=== PATIENT | female | born 1970 | race Caucasian/White ===

== ENCOUNTER 2016-05-20 00:37 | Inpatient (IN) | payer MEDICARE ==
--- NOTE | ~2016-05-20 | HP ---
Unit #: [id number] #: [id number] Patient: TREV BOJORQUEZ X [place] HISTORY AND PHYSICAL
--- NOTE | ~2016-05-20 | PN ---
Unit #: [id number] #: [id number] Patient: TREV BOJORQUEZ [id number] [facility] [address] [place] [address] [id number] I MR#: [id number] NAME: TREV BOJORQUEZ. ROOM: P125 Age: 45 Sex: F Admission Date: 05/20/2016 : 1970 Attending Physician: Raul Donovan M.D. Admitting Physician: Raul Donovan M.D. Primary Care Physician: Primary Care Physician Alisa RECINOS PROGRESS NOTES DATE 05/27/2016 DISCUSSION Trev continues to demonstrate some thought-blocking and paranoia today. She is compliant with medications and denies any adverse side effects. She is alert and oriented to person and location with partial orientation to time and situation. Memory and concentration appear fair. Her thought processes continue to appear stilted with thought blocking. ASSESSMENT Bipolar mixed with psychotic features. PLAN Continue with current treatment plan. Dictated by... Ghanshyam BarneyH/kathe TD: 05/29/2016 12:53 JOB #: [id number] [facility] PROGRESS NOTES Page 1 of 1 X Raul Donovan MD X PROGRESS NOTE
--- NOTE | ~2016-05-20 | PN ---
Unit #: [id number] #: [id number] Patient: TREV BOJORQUEZ [id number] [facility] [address] [place] [address] [id number] MR#: [id number] NAME: TREV BOJORQUEZ. ROOM: P125 Age: 45 Sex: F Admission Date: 05/20/2016 : 1970 Attending Physician: Raul Donovan M.D. Admitting Physician: Raul Donovan M.D. Primary Care Physician: Primary Care Physician Alisa RECINOS PROGRESS NOTES DATE 05/28/2016 DISCUSSION Trev shows improvement today. Her speech is more spontaneous with much thought-blocking, and her affect is brighter with better eye contact and a broader range of expression. She is alert and oriented to person, location, time, and partially to situation. Her memory and concentration are improved, and her thought processes appear less psychotic. ASSESSMENT Bipolar mixed with psychotic feature. PLAN Continue current treatment plan and anticipate discharge soon. Dictated by... Ghanshyam Barney/kathe TD: 05/29/2016 12:59 JOB #: [id number] [facility] PROGRESS NOTES Page 1 of 1 X Raul Donovan MD X PROGRESS NOTE
--- NOTE | ~2016-05-20 | DS ---
Unit #: [id number] #: [id number] Patient: TREV BOJORQUEZ [id number] [place] [address] [id number] I MR#: [id number] NAME: TREV BOJORQUEZ. ROOM: [facility] Age: 45 Sex: F Admission Date: 05/20/2016 : 1970 Discharge Date: 06/02/2016 Attending Physician: Raul Donovan M.D. Primary Care Physician: Primary Care Physician No DISCHARGE SUMMARY REASON FOR ADMISSION Trev is a 45-year-old woman with a history of bipolar disorder, who had become increasingly paranoid and she believed that people were out to get her. She had not been caring for herself or eating and was admitted for stabilization. DIAGNOSTIC STUDIES LABORATORY RESULTS: Please see hospital chart. HOSPITAL COURSE The patient was admitted and placed on suicide and psychosis precautions. [place], Zoloft, and Topamax was restarted and Seroquel was added for psychosis and mood stability, later increased to 600 mg daily. She had a significant amount of thought blocking and response to internal stimuli during the earlier part of her hospitalization, and this gradually improved although she did have a mildly relapsing pattern to this situation. On the date of discharge, she appeared improved with brighter affect, better eye contact, and was able to contract for safety in the outpatient setting. DISCHARGE DIAGNOSES AXIS I: Bipolar, mixed with psychotic features, F31.5. AXIS II: No diagnosis. AXIS III: None acute. AXIS IV: AXIS V: DISCHARGE INSTRUCTIONS Follow up with [facility] and primary care physician. DISCHARGE MEDICATIONS [place] 300 mg in the morning and 600 mg at bedtime for mood stability, Zoloft 150 mg daily for depression, and Seroquel 200 mg in the morning and 400 mg at bedtime for psychosis. CONDITION AT DISCHARGE Improved. PROGNOSIS Fair to good. DIET AND ACTIVITY Unit #: [id number] #: [id number] Patient: TREV BOJORQUEZ Ad paige. Dictated by... Raul Donovan M.D. [facility]/modl TD: 06/02/2016 12:36 JOB #: [id number] DISCHARGE SUMMARY Page 1 of 1 X Raul Donovan MD DISCHARGE SUMMARY
--- NOTE | ~2016-05-20 | PN ---
Unit #: [id number] #: [id number] Patient: TREV BOJORQUEZ [id number] [facility] [address] [place] [address] [id number] MR#: [id number] NAME: TREV BOJORQUEZ. ROOM: P125 Age: 45 Sex: F Admission Date: 05/20/2016 : 1970 Attending Physician: Raul Donovan M.D. Admitting Physician: Raul Donovan M.D. Primary Care Physician: Primary Care Physician Alisa SORTO NOTES DATE OF SERVICE 06/01/2016 DISCUSSION Trev continues to be compliant with medications and has minimal adverse side effects. Her psychosis appears improved but not fully resolved. She is alert and fully oriented. Memory and concentration are fair to good. ASSESSMENT Bipolar mixed psychotic features. PLAN Anticipate discharge tomorrow. Dictated by... Ghanshyam Barney/gold TD: 06/02/2016 04:13 JOB #: [id number] [facility] PROGR[facility] Page 1 of 1 X Raul Donovan MD PROGRESS NOTE
--- NOTE | ~2016-05-20 | PN ---
Unit #: [id number] #: [id number] Patient: TREV BOJORQUEZ [id number] [facility] [address] [place] [address] [id number] I MR#: [id number] NAME: TREV BOJORQUEZ. ROOM: P125 Age: 45 Sex: F Admission Date: 05/20/2016 : 1970 Attending Physician: Raul Donovan M.D. Admitting Physician: Raul Donovan M.D. Primary Care Physician: Primary Care Physician Alisa RECINOS PROGRESS NOTES DATE OF SERVICE 05/31/2016 DISCUSSION Trev showed some improvement today. Her speech is more spontaneous eye contact and interactions are better and she is alert and fully oriented. She still demonstrates mild paranoia and thought blocking, but much improved. ASSESSMENT Bipolar mixed with psychotic features. PLAN Continue current treatment plan anticipating discharge Thursday. Dictated by... Ghanshyam Barney/gold TD: 06/02/2016 00:57 JOB #: [id number] [facility] PROGRESS NOTES Page 1 of 1 X Raul Donovan MD X PROGRESS NOTE
--- NOTE | ~2016-05-20 | PN ---
Unit #: [id number] #: [id number] Patient: TREV BOJORQUEZ [id number] [facility] [address] [place] [address] [id number] I MR#: [id number] NAME: TREV BOJORQUEZ. ROOM: P125 Age: 45 Sex: F Admission Date: 05/20/2016 : 1970 Attending Physician: Raul Donovan M.D. Admitting Physician: Raul Donovan M.D. Primary Care Physician: Alisa Primary Care Physician GRISEL PROGRESS NOTES DATE 05/24/2016 DISCUSSION Trev is somewhat sedated by her early morning babysitter dose of Seroquel today. She still appears paranoid and watchful with a flat affect. She is alert and fully oriented. Her memory and concentration are only fair and her through processes appear ongoingly psychotic. ASSESSMENT Bipolar mix. PLAN Continue currently increased dose of Seroquel and continue lithium. I note that lithium level yesterday was therapeutic at 0.6. Dictated by... Ghanshyam Barney/abigail TD: 05/27/2016 08:47 JOB #: [id number] [facility] PROGRESS NOTES Page 1 of 1 X Raul Donovan MD X PROGRESS NOTE
--- NOTE | ~2016-05-20 | A ---
[facility] Nutrition Therapy DATE: 05/30/16 Patient: TREV BOJORQUEZ Physician: MURIEL Address: [address] [place] [address] CIR Room/Bed: [address], Zip: [place] [address] Admit Date: 05/20/16 Date of : [birth year] Height: 5 7 Weight: [phone] NUTRITIONAL ASSESSMENT: REASON: LENGTH OF STAY PATIENT ADMITTED FOR PARANOIA AND PSYCHOSIS PMH: NONE Anthropometrics: HT" 5'7", WT: 127#, BMI: 19.9 Labs: 05/20/16: BUN: <5 Meds: SEROQUEL, TOPAMAX, LITHIUM CARBONATE, ZOLOFT Assessment: PATIENT IS A 45 Y/O FEMALE ADMITTED FOR PSYCHOSIS AND PARANOIA. PATIENT IS CURRENTLY UNEMPLOYED, LIVES WITH HER BOYFRIEND, SMOKES 1 PPD, DENIES CURRENT SUBSTANCE ABUSE, AND HAS A HX OF AMPHETAMINE USE. PER NEEDS ASSESSEMENT PATIENT STATED A FAIR APPETITE WITH A 5# WEIGHT LOSS. NURSING REPORTS FAIR PO INTAKES. PATIENT CONTINUES TO EXHIBIT BIZARRE BEHAVIOR AND IS A/OX2. PATIENT HAS A HX OF INPATIENT PSYCH HOSPITALIZATIONS AND SHE HAS BEEN NON-COMPLIANT WITH MEDICATIONS OUTSIDE OF FACILITY. CURRENT PSYCH MEDS MAY CAUSE AN INCREASE IN WEIGHT AND APPETITE. PATIENT IS ON A REGULAR DIET. THERE ARE NO SKIN OR GI ISSUES NOTED ATT. Dx: NO NUTRITION DX Intervention: REGULAR DIET, MEDS PER MD, PSYCH Monitoring, Evaluation and Goals: 1. ADEQUATE PO INTAKES >50% OF MEALS 2. PREVENT, CORRECT MICRO/MACRO NUTRIENT DEFICIENCIES MONITOR: WEIGHTS, LABS, PO/FLUID INTAKES Recommendations: 1. CONTINUE REGULAR DIET TOLERATED 2. ENCOURAGE ADEQUATE PO AND FLUID INTAKES 3. IF PO INTAKES FALL BELOW 50% OF MEALS PLEASE ORDER ENSURE BID TO PROMOTE ADEQUATE KCAL AND PROTEIN INTAKES RD TO F/U PER PROTOCOL AND PRN R/T PATIENT NOT AT NUTRITIONAL RISK ATT [facility] Nutrition Therapy DATE: 05/30/16 Patient: TREV BOJORQUEZ Physician: MURIEL Address: [address] [place] [address] CIR Room/Bed: [address], Zip: [place] [address] Admit Date: 05/20/16 Date of : [birth year] Height: 5 7 Weight: [phone] Respectfully, LUDWIN GUTIERREZ RD, LD [facility] cc: client file
--- NOTE | ~2016-05-20 | PN ---
Unit #: [id number] #: [id number] Patient: TREV BOJORQUEZ [id number] [facility] [address] [place] [address] [id number] I MR#: [id number] NAME: TREV BOJORQUEZ. ROOM: P125 Age: 45 Sex: F Admission Date: 05/20/2016 : 1970 Attending Physician: Raul Donovan M.D. Admitting Physician: Raul Donovan M.D. Primary Care Physician: Primary Care Physician Alisa RECINOS PROGRESS NOTES DATE 05/26/2016 DISCUSSION Trev appears mildly better today although she is still watchful and paranoid. She has some speech latency but not as much as when she was admitted. Her grooming is also improved. Her answers to questions, however, are rather nonspecific, mainly consisting of "I do not know" even when asked questions about her personal health or emotions. She is alert and oriented to person and location. Her memory and concentration are only fair. Her thought processes appear psychotic. ASSESSMENT Bipolar disorder mixed. PLAN Continue with increased dose of Seroquel and await further improvement. Dictated by... Ghanshyam Barney/krunal TD: 05/28/2016 08:40 JOB #: [id number] [facility] PROGRESS NOTES Page 1 of 1 X Raul Donovan MD PROGRESS NOTE
--- NOTE | ~2016-05-20 | PN ---
Unit #: [id number] #: [id number] Patient: TREV BOJORQUEZ [id number] [facility] [address] [place] [address] [id number] MR#: [id number] NAME: TREV BOJORQUEZ. ROOM: P113 Age: 45 Sex: F Admission Date: 05/20/2016 : 1970 Attending Physician: Raul Donovan M.D. Admitting Physician: Raul Donovan M.D. Primary Care Physician: Primary Care Physician Alisa RECINOS PROGRESS NOTES DATE 05/22/2016 DISCUSSION The patient is seen in the day room today for Dr. Donovan. In his absence, she seems to exhibit significant thought-blocking and difficulty with processing of information. I will at this point make no medication changes, but the patient continues to appear to be significantly psychotic during today's interview. Dictated by... Kota Haji M.D. CB/kathe TD: 05/22/2016 14:49 JOB #: [id number] [facility] PROGRESS NOTES Page 1 of 1 X Kota Haji MD PROGRESS NOTE
--- NOTE | ~2016-05-20 | PN ---
Unit #: [id number] #: [id number] Patient: TREV BOJORQUEZ [id number] [facility] [address] [place] [address] [id number] I MR#: [id number] NAME: TREV BOJORQUEZ. ROOM: P125 Age: 45 Sex: F Admission Date: 05/20/2016 : 1970 Attending Physician: Raul Donovan M.D. Admitting Physician: Raul Donovan M.D. Primary Care Physician: Primary Care Physician Alisa SORTO NOTES DATE 05/29/2016 DISCUSSION Trev appears somewhat better today although she continues to have significant thought-blocking and appears to be still occasionally responding to internal stimuli. She is tolerating her medications well with no significant adverse side effects. She is alert and oriented to person and location, partially to time and partially to situation. Her memory and concentration remain impaired, and her thought processes are psychotic as noted above. ASSESSMENT Bipolar mixed with psychotic features. PLAN I am going to continue her medications at this level at her request, although we will continue to consider dose increases should her psychosis continued to be problematic. Dictated by... Ghanshyam BarneyH/bzg TD: 05/30/2016 11:40 JOB #: [id number] [facility] SORTO NOTES Page 1 of 1 X Raul Donovan MD PROGRESS NOTE
--- NOTE | ~2016-05-20 | PA ---
Unit #: [id number] #: [id number] Patient: TREV BOJORQUEZ [id number] [place] [address] [id number] I MR#: [id number] NAME: TREV BOJORQUEZ. ROOM: [facility] Age: 45 Sex: F Admission Date: 05/20/2016 : 1970 Date of Assessment: 05/21/2016 Attending Physician: Raul Donovan M.D. Admitting Physician: Raul Donovan M.D. Primary Care Physician: Primary Care Physician No PSYCHIATRIC ASSESSMENT DATE OF SERVICE 05/21/2016 INFORMANTS The patient, partially reliable; OLOP, reliable. CHIEF COMPLAINT Paranoia. HISTORY OF PRESENT ILLNESS Trev Bojorquez is a 45-year-old woman with a history of mood disorder, who reports she has become extremely paranoid believing people were "out together" and family reported that she has not been eating or caring for herself. She apparently had a psychotic decompensation and was admitted for stabilization. PAST PSYCHIATRIC HISTORY Previous admissions to this facility with a diagnosis of bipolar disorder in mixed state. She has been noncompliant with medications. FAMILY PSYCHIATRIC HISTORY The patient denied a family history of mental illness or substance abuse. SOCIAL HISTORY The patient is on long-term disability and is a high-school graduate. There is no history of abuse and she is living with her family. PAST MEDICAL HISTORY No chronic medical problems. MEDICATIONS None currently. ALLERGIES Lamotrigine. SUBSTANCE ABUSE HISTORY The patient has a history of amphetamine abuse. MENTAL STATUS EXAMINATION The patient presented as a disheveled woman who appeared older than her stated age. She stood 5 feet 7 inches tall, weighing 127 pounds. Vital signs; temperature 97.5, pulse 88, respirations 18, and blood pressure Unit #: [id number] #: [id number] Patient: TREV BOJORQUEZ 138/78. Her speech was sparse and she appeared to had difficulty getting words out with significant thought blocking. Musculoskeletal examination demonstrated mild psychomotor agitation. Her mood was irritable with a flat affect. She was alert and oriented to person and location, but not situation or time. Her memory and concentration were impaired and her thought processes appeared rambling and psychotic. ASSETS AND LIABILITIES The patient has supportive family and has a history of response to treatment. Liabilities include noncompliance and acute psychosis. ADMITTING DIAGNOSES AXIS I: Bipolar disorder, mixed, F31.5. AXIS II: No diagnosis. AXIS III: None acute. AXIS IV: AXIS V: PSYCHIATRIC PLAN The patient was admitted and placed on suicide and psychosis precautions. [place], Zoloft, and Topamax will be restarted with Seroquel 400 mg at bedtime for psychosis and mood stability. She will enroll in dual diagnosis groups and activities, and physical examination and laboratory studies will be ordered and reviewed. Treatment goals are resolution of psychosis, improvement in insight, and improvement in coping skills. DISCHARGE PLANNING Follow up with [facility]. ESTIMATED LENGTH OF STAY 5 days. Dictated by... Raul Donovan M.D. LILIANA/rula TD: 05/24/2016 16:47 JOB #: [id number] PSYCHIATRIC ASSESSMENT Page 1 of 1 X Raul Donovan MD X PSYCHIATRIC ASSESSMENT
--- NOTE | ~2016-05-20 | PN ---
Unit #: [id number] #: [id number] Patient: TREV BOJORQUEZ [id number] [facility] [address] [place] [address] [id number] MR#: [id number] NAME: TREV BOJORQUEZ. ROOM: P125 Age: 45 Sex: F Admission Date: 05/20/2016 : 1970 Attending Physician: Raul Donovan M.D. Admitting Physician: Raul Donovan M.D. Primary Care Physician: Primary Care Physician Alisa RECINOS PROGRESS NOTES DATE 05/30/2016 DISCUSSION Trev is a little bit better today although she continues to demonstrate some bizarre behaviors such as sleeping on the floor and has a disheveled and somewhat disorganized appearance. She is alert and oriented to person and location and partially to situation and time. Her memory and concentration are only fair, and her thought processes still are a little stilted although more fluent today. ASSESSMENT Bipolar mixed with psychotic features. PLAN Continue current treatment plan trying to give medications more time to work. Dictated by... Ghanshyam Barney/kathe TD: 05/30/2016 11:56 JOB #: [id number] [facility] PROGRESS NOTES Page 1 of 1 X Raul Donovan MD PROGRESS NOTE
[2016-05-20 12:36] LABS: BASOPHIL% 0.4 % (0-2.5); EOSINOPHIL# 0.1 X10e3 (0-0.7); EOSINOPHIL% 1.1 % (0.0-7.0); HEMOGLOBIN 12.9 gm/dL (12.0-16.0); LYMPHOCYTE# 1.2 X10e3 (1.0-3.5); MEAN CELL VOLUME 89.8 FL (83-96); MEAN CORPUSCULAR HGB CONC 32.3 g/dL (30-36); MEAN PLATELET VOLUME 7.8 FL (6.5-11.5); MONOCYTE# 0.7 X10e3 (0-1.0); NEUTROPHIL# 8.2 X10e3 (1.5-7.1); NEUTROPHIL% 79.5 % (40-75); PLATELET COUNT 347 X10e3 (140-420); RED BLOOD COUNT 4.46 X10e (3.90-5.30); RED CELL DISTRIBUTION WIDTH 15.2 % (11.0-15.5); WHITE BLOOD COUNT 10.3 X10e3 (4.0-10.5)
[2016-05-20 12:42] LABS: DIFF IND NO
[2016-05-20 12:57] LABS: ALBUMIN SERUM 4.7 g/dL (3.5-5.0); ALKALINE PHOSPHATASE 65 U/L (32-92); ALT (SGPT) 10 U/L (10-40); AST (SGOT) 16 U/L (10-42); BILIRUBIN,TOTAL 0.7 mg/dL (0.2-2.0); CALCIUM SERUM 9.9 mg/dL (8.4-10.2); CARBON DIOXIDE 25 mmol/L (22-31); CHLORIDE 105 mmol/L (100-111); CREATININE SERUM 0.7 mg/dL (0.6-1.4); GLOM FILT RATE Estimated 103.9 mL/min (>60); GLUCOSE FASTING 91 mg/dL (70-110); PROTEIN TOTAL SERUM 7.5 g/dL (6.0-8.3); SODIUM 138 mmol/L (135-145)
[2016-05-20 12:59] LABS: BLOOD UREA NITROGEN <5 mg/dL (9-23); BUN/CREATININE RATIO 7.14
== END 2016-06-02 12:45 | disposition home or self-care (01) | DRG 885 ==
LOC: P1S 00:37
PROVIDERS: Psychiatry & Neurology Psychiatry
DX: F31.60 Bipolar disorder, current episode mixed, unspecified (principal); Z91.14 Patient's other noncompliance with medication regimen; F17.210 Nicotine dependence, cigarettes, uncomplicated; Z88.8 Allergy status to other drugs, medicaments and biological substances
CPT/HCPCS: 80053; 80178; 84703; 85025; J2060; J3486